=== PATIENT | female | born 1950 | race Caucasian/White ===

== ENCOUNTER → 2017-06-14 | Outpatient (CLI) | payer MEDICARE, OTHER ==
[~2017-06-14] MED LIST: ASPI81TA50 PO; CALC-507 PO; ESTR10TA VG; LOVA20TA2 PO; MULT1TAB6 PO; OMEP10CA PO; VIT1TABL65 PO
--- NOTE | 2017-06-14 11:46 | RAD ---
DATE: 06/14/2017 EXAM: MAMMO VERONIKA SCREENING BILATERAL HISTORY: Routine screening COMPARISON: 05/29/2016 This study was interpreted with the benefit of Computerized Aided Detection (CAD). There are scattered fibroglandular densities in the breasts. Findings: 2-D and 3-D tomosynthesis imaging was performed in CC and MLO projections. No new or enlarging breast densities are seen. Minimal benign type calcifications are present. No suspicious microcalcifications have developed. IMPRESSION: Stable mammograms without evidence of malignancy. BI-RADS CATEGORY: 2 BENIGN FINDING(S) RECOMMENDED FOLLOW-UP: 12M 12 MONTH FOLLOW-UP PQRS compliance statement: Patient information was entered into a reminder system with a target due date for the next mammogram. Mammography is a sensitive method for finding small breast cancers, but it does not detect them all and is not a substitute for careful clinical examination. A negative mammogram does not negate a clinically suspicious finding and should not result in delay in biopsying a clinically suspicious abnormality. "Our facility is accredited by the [employer] Mammography [employer]."
== END | disposition home or self-care (01) ==
LOC: MAMMO 09:44
PROVIDERS: ATTEND Physician Assistant
DX: Z12.31 Encounter for screening mammogram for malignant neoplasm of breast (principal); Z00.00 Encounter for general adult medical examination without abnormal findings
CPT/HCPCS: 77063; G0202; 77067

== ENCOUNTER → 2018-06-17 | Outpatient (CLI) | payer MEDICARE, OTHER ==
--- NOTE | 2018-06-17 10:20 | RAD ---
DATE: 06/17/2018 EXAM: MAMMO VERONIKA SCREENING BILATERAL HISTORY: Routine screening COMPARISON: 06/14/2017 This study was interpreted with the benefit of Computerized Aided Detection (CAD). The breast parenchyma shows scattered fibroglandular densities. Breast parenchyma level B. FINDINGS: 2-D and 3-D tomosynthesis imaging was performed in CC and MLO projections. No new or enlarging breast densities are seen. No suspicious microcalcifications are evident. IMPRESSION: Stable mammograms without evidence of malignancy. BI-RADS CATEGORY: 1 NEGATIVE RECOMMENDED FOLLOW-UP: 12M 12 MONTH FOLLOW-UP PQRS compliance statement: Patient information was entered into a reminder system with a target due date for the next mammogram. Mammography is a sensitive method for finding small breast cancers, but it does not detect them all and is not a substitute for careful clinical examination. A negative mammogram does not negate a clinically suspicious finding and should not result in delay in biopsying a clinically suspicious abnormality. "Our facility is accredited by the [employer] Mammography [employer]."
== END | disposition home or self-care (01) ==
LOC: MAMMO 07:45
PROVIDERS: ATTEND Physician Assistant
DX: Z12.31 Encounter for screening mammogram for malignant neoplasm of breast (principal)
CPT/HCPCS: 77063; 77067

== ENCOUNTER → 2019-07-17 | Outpatient (CLI) | payer MEDICARE, OTHER ==
--- NOTE | 2019-07-18 10:02 | RAD ---
Bone densitometry 07/17/2019 10:28 AM Indication: Screening exam, postmenopausal. Comparison Study: None. Discussion: Bone Densitometry was performed with dual photon absorption of the lumbar spine and proximal right femur. Lumbar Spine: Bone average density is 1.127g/cm2 for L1-L4. T-Score is -0.4. Proximal right femur: Bone average density is 1.060g/cm2. T-Score is 0.8. IMPRESSION: Normal bone mineral density Note: Definitions established by the World Health Organization: Normal: T-score is -1.0 or above. Osteopenia: T-score is between -1.0 and -2.5. Osteoporosis: T-score is -2.5 or below. Electronically signed by: Shubham Multani MD (07/18/2019 9:59 AM) [id number]
--- NOTE | 2019-07-18 18:10 | RAD ---
BILATERAL SCREENING MAMMOGRAM, 3-D History: Routine screening. Comparison: 05/29/2016, 06/14/2017, 06/17/2018 mammographic exams. Technique: MLO and CC digital tomosynthesis (3D) images obtained. Radiologist reviewed these images on dedicated workstation. Findings: Breast Tissue Density B : There are scattered areas of fibroglandular density. There are no dominant masses, suspicious microcalcifications, or architectural distortion. IMPRESSION: No mammographic evidence of malignancy. Recommend routine screening. BI-RADS category 1: Negative. The images were reviewed with computer-aided detection. Patient information is entered into reminder system with a target due date for the next screening mammogram. Mammography is the most sensitive method for finding small breast cancers, but it does not detect them all and is not a substitute for careful clinical examination. A negative mammogram does not negate a clinically suspicious finding and should not result in delay in biopsying a clinically suspicious abnormality. "Our facility is accredited by the [employer] Mammography Program." Electronically signed by: Malcom Le MD (07/18/2019 6:07 PM) [facility]
== END | disposition home or self-care (01) ==
LOC: DXRAD 09:46
PROVIDERS: ATTEND Registered Nurse
DX: Z12.31 Encounter for screening mammogram for malignant neoplasm of breast (principal); Z78.0 Asymptomatic menopausal state
CPT/HCPCS: 77063; 77067; 77080

== ENCOUNTER 2019-10-20 08:15 | Observation (INO) | payer MEDICARE, OTHER ==
[~2019-10-20] VITALS: Ht 160 cm; Wt 61.9 kg
--- NOTE | 2019-10-20 08:42 | PHYS DOC ---
Past History Past Medical History: GERD, High Cholesterol Additional Past Medical Histor: hiatal hernia Past Surgical History: Appendectomy, Cholecystectomy, Other Additional Past Surgical Histo: colon resce; left breast bx; incisional hernia repair Smoking: Non-smoker Alcohol Use: Occasionally Additional Alcohol Information: 1 beer per week Drug Use: None Adult General Chief Complaint Chief Complaint: CHEST PAIN [facility] HPI Patient is a 69-year-old female who presents to the emergency department for evaluation. She states that overnight she awakened with some epigastric discomfort, described as a fullness or pressure, associated with some nausea, and some discomfort in her left trapezius/neck area. The symptoms have been waxing and waning, and not associated with any other symptoms. She has not had any shortness of breath, exertional exacerbation of his symptoms, any direct chest pain, vomiting, or diaphoresis. She has no prior cardiac history, but risk factors include borderline cholesterol which is treated with a cholesterol medication, as well as a family history. The patient has never been a smoker. There are no alleviating or exacerbating factors to the patient's symptoms. HEART score is a 3. Review of Systems Review of Systems Constitutional: Denies fever or chills [] Eyes: Denies change in visual acuity, redness, or eye pain [] HENT: Denies nasal congestion or sore throat [] Respiratory: Denies cough or shortness of breath [] Cardiovascular: No additional information not addressed in HPI [] GI: Denies abdominal pain vomiting, bloody stools or diarrhea [] : Denies dysuria or hematuria [] Musculoskeletal: Denies back pain or joint pain [] Integument: Denies rash or skin lesions [] Neurologic: Denies headache, focal weakness or sensory changes [] Endocrine: Denies polyuria or polydipsia [] All other systems were reviewed and found to be within normal limits, except as documented in this note. Allergies Allergies Allergies Coded Allergies Type Severity Reaction Last Updated Verified ampicillin Allergy Intermediate Rash 10/20/19 Yes levofloxacin Allergy Mild 10/20/19 Yes Physical Exam Physical Exam PHYSICAL EXAM: CONSTITUTIONAL: Well developed, well nourished HEAD: normocephalic, atraumatic EENT: PERRL, EOMI. Conjunctivae normal color, sclerae non-icteric; moist mucous membranes. NECK: Supple, non-tender; no meningismus. LUNGS: Lungs CTA, breathing even and unlabored. Normal air movement. HEART: Regular rate and rhythm, no murmur CHEST: No deformity; non-tender ABDOMEN: The abdomen is soft, and non-tender, no masses or bruits. EXTREM: Normal ROM; no deformity, no calf tenderness. Normal pulses palpable in all extremities. There is no pedal edema. SKIN: No rash; no diaphoresis NEURO: Alert; normal speech and cognition; CN's grossly intact; strength grossly intact without focal deficit. BACK: No CVA TTP. Current Patient Data Vital Signs Vital Signs Date Time Temp Pulse Resp B/P (MAP) Pulse Ox O2 Delivery O2 Flow Rate FiO2 10/20/19 08:23 97.9 104 27 99 Room Air Lab Results Laboratory Tests Test 10/20/19 08:30 White Blood Count 9.2 x10^3/uL Red Blood Count 4.62 x10^6/uL Hemoglobin 14.2 g/dL Hematocrit 42.2 % Mean Corpuscular Volume 91 fL Mean Corpuscular Hemoglobin 31 pg Mean Corpuscular Hemoglobin Concent 34 g/dL Red Cell Distribution Width 13.2 % Platelet Count 233 x10^3/uL Neutrophils (%) (Auto) 68 % Lymphocytes (%) (Auto) 23 % Monocytes (%) (Auto) 6 % Eosinophils (%) (Auto) 3 % Basophils (%) (Auto) 1 % Neutrophils # (Auto) 6.2 x10^3uL Lymphocytes # (Auto) 2.1 x10^3/uL Monocytes # (Auto) 0.6 x10^3/uL Eosinophils # (Auto) 0.2 x10^3/uL Basophils # (Auto) 0.1 x10^3/uL Sodium Level 140 mmol/L Potassium Level 3.3 mmol/L Chloride Level 103 mmol/L Carbon Dioxide Level 26 mmol/L Anion Gap 11 Blood Urea Nitrogen 14 mg/dL Creatinine 0.8 mg/dL Estimated GFR (Cockcroft-Gault) 71.3 BUN/Creatinine Ratio 18 Glucose Level 133 mg/dL Calcium Level 8.8 mg/dL Total Bilirubin 0.8 mg/dL Aspartate Amino Transf (AST/SGOT) 21 U/L Alanine Aminotransferase (ALT/SGPT) 33 U/L Alkaline Phosphatase 66 U/L Troponin I Quantitative < 0.017 ng/mL UV-Xrt-N-Type Natriuretic Peptide 226 pg/mL Total Protein 7.5 g/dL Albumin 3.9 g/dL Albumin/Globulin Ratio 1.1 Lipase 141 U/L Current Medications Medications (Trade) Dose Ordered Sig/Hortnecia Route PRN Reason Start Time Stop Time Status Last Admin Dose Admin Aspirin (Children'S Aspirin) 324 mg 1X ONCE PO 10/20/19 08:45 10/20/19 08:49 DC 10/20/19 09:05 Multi-Ingredient Mouthwash/Gargle (Gi Cocktail) 20 ml 1X ONCE PO 10/20/19 08:45 10/20/19 08:49 DC 10/20/19 09:05 EKG EKG Normal sinus rhythm with a normal rate, normal axis, normal intervals, there are no acute ischemic ST/T changes.[] Repeat EKG, done at 9:31, shows normal sinus rhythm a rate of 97 bpm with occasional PVCs, normal axis, normal intervals, there are no acute ischemic ST/T changes. Radiology/Procedures Radiology/Procedures PROCEDURE: PORTABLE CHEST 1V EXAM: Chest, single view. HISTORY: Chest pain. COMPARISON: None. FINDINGS: A frontal view of the chest is obtained. There is no infiltrate, pleural effusion or pneumothorax. The heart is normal in size. IMPRESSION: No acute pulmonary finding.[] Course & Med Decision Making Course & Med Decision Making Pertinent Labs and Imaging studies reviewed. (See chart for details) []10:15 PM: The patient's condition remains stable. I spoke with the hospitalist, who accepted the patient to the hospital for further evaluation and treatment. Dragon Disclaimer Dragon Disclaimer This electronic medical record was generated, in whole or in part, using a voice recognition dictation system. Departure Departure: Impression: Primary Impression: Atypical chest pain Additional Impression: PVC (premature ventricular contraction) Disposition: ADMITTED INPATIENT Admitting Physician: Patsy Lawrence Condition: STABLE Referrals: NIK KESSLER (PCP) Problem Qualifiers ASHOK MINAYA MD Oct 20, 2019 08:42
[2019-10-20 08:45] LABS: BASO # 0.1 x10^3/uL (0.0-0.2); BASO % 1 % (0-3); EOS # 0.2 x10^3/uL (0.0-0.7); EOS % 3 % (0-3); HEMATOCRIT 42.2 % (36.0-47.0); HEMOGLOBIN 14.2 g/dL (12.0-15.5); LYMPH # 2.1 x10^3/uL (1.0-4.8); LYMPH % 23 % (24-48); MEAN CORPUSCULAR HEMOGLOBIN 31 pg (25-35); MEAN CORPUSCULAR HGB CONC 34 g/dL (31-37); MEAN CORPUSCULAR VOLUME 91 fL (79-100); MONO # 0.6 x10^3/uL (0.0-1.1); MONO % 6 % (0-9); NEUT # 6.2 x10^3uL (1.8-7.7); NEUT % 68 % (31-73); PLATELET COUNT 233 x10^3/uL (140-400); RED BLOOD COUNT 4.62 x10^6/uL (3.50-5.40); RED CELL DISTRIBUTION WIDTH 13.2 % (11.5-14.5); WHITE BLOOD COUNT 9.2 x10^3/uL (4.0-11.0)
[2019-10-20] MEDS ORDERED: LIDO:MAALOX 1:1 20 ML SINGLE DOSE. PO ONE (08:45)
[2019-10-20] MEDS ORDERED: ASPIRIN 81 MG TAB.CHEW PO ONE (08:45)
[2019-10-20 09:03] LABS: ALBUMIN 3.9 g/dL (3.4-5.0); ALBUMIN/GLOBULIN RATIO 1.1 (1.0-1.7); CALCIUM 8.8 mg/dL (8.5-10.1); CREATININE 0.8 mg/dL (0.6-1.0); GFR 71.3; POTASSIUM 3.3 mmol/L (3.5-5.1); TOTAL BILIRUBIN 0.8 mg/dL (0.2-1.0); TOTAL PROTEIN 7.5 g/dL (6.4-8.2)
--- NOTE | 2019-10-20 09:12 | RAD ---
EXAM: Chest, single view. HISTORY: Chest pain. COMPARISON: None. FINDINGS: A frontal view of the chest is obtained. There is no infiltrate, pleural effusion or pneumothorax. The heart is normal in size. IMPRESSION: No acute pulmonary finding. Electronically signed by: Sally Torres MD (10/20/2019 9:08 AM) [place] [id number]
--- NOTE | 2019-10-20 09:35 | EKG ---
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
[2019-10-20] MEDS ORDERED: METOPROLOL TARTRATE 5 MG/5 ML VIAL. IV ONE (10:15)
[2019-10-20 11:13] VITALS: BP 135/83
--- NOTE | 2019-10-20 13:24 | HP ---
ADMIT DATE: 10/20/2019 HISTORY OF PRESENT ILLNESS: The patient is a 69-year-old female patient who came to the Emergency Room complaining of epigastric discomfort that awakened her from sleep overnight, described as a fullness or pressure associated with some nausea and some discomfort in her left shoulder area and left neck. Symptoms have been waxing and waning, are not associated with any other symptom, particularly denied any shortness of breath. Denied any diaphoresis. The pain has happened when she was sitting and not exerting herself. She normally walks on a treadmill five times a week. She has some nausea, but no vomiting. She has no prior cardiac history. She has had stress test done in 2000 when her brother had heart attack and at that time, it was normal. She has never had cardiac catheterization. She was evaluated in the Emergency Room and has had an EKG, which showed that she was in sinus rhythm, normal rate, axis and intervals. There is no acute ischemia or ST-T changes. She does have occasional premature ventricular contractions. Her chest x-ray was unremarkable, showed no acute pulmonary finding and her first set of cardiac enzymes showed a troponin to be less than 0.017 and therefore, the patient was admitted to do 2 more sets of cardiac enzyme, check her fasting lipid profile and consult the Cardiology team. PAST MEDICAL HISTORY: Significant for hyperlipidemia, gastroesophageal reflux disease, hiatal hernia. She has also history before of Helicobacter pylori gastritis, treated for that. PAST SURGICAL HISTORY: Significant for cholecystectomy, colon resection, incisional hernia repair, breast biopsy, esophagogastroduodenoscopy and colonoscopy. ALLERGIES: She is allergic to AMPICILLIN and LEVOFLOXACIN. MEDICATIONS: She is currently on following medications: She is on lovastatin 20 mg once a day at bedtime, calcium carbonate with vitamin D3 one tablet once a day, omeprazole 10 mg once a day, estradiol, Vagifem 10 mcg once a week and multivitamin with mineral 1 tablet once a day. FAMILY HISTORY: She has 3 brothers, all younger. The oldest brother has had triple bypass and 3 stents. Second was diagnosed with endocarditis and congestive heart failure at the age of 59. The third was diagnosed with pulmonary embolism and has hypertension and heart disease. Her father at age of 30 because of lymphoma. Mother is still alive at the age of 90 and had two TIAs and a stroke. SOCIAL HISTORY: She is , has a son and daughter. She never smoked. Drinks alcohol occasionally. 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 REVIEW OF SYSTEMS: The patient denied any blurring of vision, cataract, glaucoma or macular degeneration. Denied any earache, tinnitus or sensorineural deafness. Denied any nosebleeds, stuffy nose or postnasal drip. Denied any sore throat, sore tongue, toothache, hoarseness of voice or difficulty swallowing. Did complain of nausea, but no vomiting. Denied any diarrhea or constipation. Denied any hematemesis, melena or hematochezia. Denied any dysuria, frequency or hematuria. Did complain of epigastric discomfort with radiation to left shoulder and left side of the neck. Denied any shortness of breath, orthopnea, paroxysmal nocturnal dyspnea. Denied any cough, phlegm or hemoptysis. Denied any chills, rigors or fever. PHYSICAL EXAMINATION: GENERAL: On arrival to the Emergency Room, she looked well and was clearly in no apparent respiratory distress. There is no pallor, jaundice, cyanosis or thyromegaly. No jugular venous distention. No limb edema. VITAL SIGNS: Her heart rate was 91, blood pressure was 127/98, temperature was 97.9, respiratory rate was 20, and oxygen saturation was 98%. HEAD, EYES, EARS, NOSE AND THROAT: Showed normocephalic, atraumatic. NECK: Supple. HEART: Showed normal first and second heart sounds. No gallop or murmur. CHEST: Clear to auscultation. No crepitation or rhonchi. ABDOMEN: Distended, soft, nontender. NEUROLOGIC: She is awake, alert, responding appropriately. All cranial nerves intact. EXTREMITIES: She moves extremities without difficulty. She ambulates without assistance or assistive devices. LABORATORY DATA: Showed that her serum sodium was 140, potassium 3.3, chloride 103, bicarbonate 26, anion gap of 11, BUN 14, creatinine 0.8, estimated GFR was 71 mL per minute. Her glucose 133, calcium was 8.8. Total bilirubin, AST, ALT, alkaline phosphatase were normal. Total protein was 7.5, albumin was 3.9. Her white cell count was 9200, hemoglobin 14, hematocrit 42, MCV 91 and platelet count 233,000 with normal manual differential. Her chest x-ray showed that there is no infiltrate, pleural effusion or pneumothorax. Heart size is normal. PLAN: Plan is to do 2 more sets of cardiac enzymes, check her fasting lipid profile, consult the Cardiology team. Meanwhile, we will continue with all her medications. ATIYA WORRELL MD DR: LORI/shruthi JOB#: [id number] / [id number]
[2019-10-20] MEDS ORDERED: ASPI-630 PO (14:23)
[2019-10-20] MEDS: POTASSIUM CHLORIDE 20 MEQ TABLET.ER. PO SCH ×2 (14:35→21:24)
[2019-10-20 15:00] VITALS: BP 114/74
--- NOTE | 2019-10-20 16:05 | PDOC2 ---
CONSULT Date of Admission DATE: 10/20/19 TIME: 16:05 Reason for Consult: CP Referring Physician: Dr. Lawrence Chief Complaint Epigastric discomfort Source: Chart review, Patient Problem List Problems Medical Problems: (1) Atypical chest pain Status: Acute (2) PVC (premature ventricular contraction) Status: Acute History of Present Illness 69 y/o female without any previous cardiac history presented complaining of epigastric discomfort, waxing and waning, associated with nausea and left shoul celio and neck pain, 7/10 severity when worse. Symptoms not related to exertion. She denied orthopnea/PND, palpitations or syncope. She has significant FH premature CAD Past Medical History GERD HLP Past Surgical History Appendectomy, Cholecystectomy, colon resce; left breast bx; incisional hernia repair Family History Strongly positive for premature CAD Social History Patient is non smoker, admitted to occasional alcohol intake and denied any drug use Current Medications Current Medications Aspirin (Children'S Aspirin) 324 mg 1X ONCE PO Last administered on 10/20/19at 09:05; Start 10/20/19 at 08:45; Stop 10/20/19 at 08:49; Status DC Multi-Ingredient Mouthwash/Gargle (Gi Cocktail) 20 ml 1X ONCE PO Last administered on 10/20/19at 09:05; Start 10/20/19 at 08:45; Stop 10/20/19 at 08:49; Status DC Metoprolol Tartrate (Lopressor Vial) 5 mg 1X ONCE IV Last administered on 10/20/19at 10:15; Start 10/20/19 at 10:15; Stop 10/20/19 at 10:16; Status DC Potassium Chloride (Klor-Con) 20 meq TID PO Last administered on 10/20/19at 14:35; Start 10/20/19 at 14:00 Active Scripts Active Reported Aspirin 81 Mg Tab.chew 81 Mg PO DAILY Prilosec (Omeprazole) 10 Mg Capsule.dr 10 Mg PO Centrum Complete Multivit Tab (Multivitamin/Iron/Folic Acid) 1 Each Tablet 1 Each PO Calcium 600 + D Tablet (Calcium Carbonate/Vitamin D3) 1 Each Tablet 1 Each PO DAILY Vagifem (Estradiol) 10 Mcg Tablet 10 Mcg VG Lovastatin 20 Mg Tablet 1 Tab PO DAILY Allergies: Coded Allergies: ampicillin (Verified Allergy, Intermediate, Rash, 10/20/19) levofloxacin (Verified Allergy, Mild, 10/20/19) General: No: Fatigue PSYCHOLOGICAL ROS: No: Hallucinations Eyes: No: Loss of vision HEENT: No: Epistaxis Respiratory: No: Hemoptysis Cardiovascular: yes: Chest Pain Gastrointestinal: YES: Nausea; No: Vomiting Genitourinary: No: Henaturia Neurological: No: Seizures Skin: No: Rash General: Alert, Oriented X3 HEENT: Atraumatic, PERRLA Lungs: Clear to auscultation Heart: Regular rate Abdomen: Soft, No tenderness Extremities: No edema Psych/Mental Status: Mood NL VITALS Vital Signs Date Time Temp Pulse Resp B/P (MAP) Pulse Ox O2 Delivery O2 Flow Rate FiO2 10/20/19 15:00 97.9 62 20 114/74 (87) 94 Room Air Labs Laboratory Tests Test 10/20/19 08:30 10/20/19 13:20 White Blood Count 9.2 x10^3/uL (4.0-11.0) Red Blood Count 4.62 x10^6/uL (3.50-5.40) Hemoglobin 14.2 g/dL (12.0-15.5) Hematocrit 42.2 % (36.0-47.0) Mean Corpuscular Volume 91 fL (79-100) Mean Corpuscular Hemoglobin 31 pg (25-35) Mean Corpuscular Hemoglobin Concent 34 g/dL (31-37) Red Cell Distribution Width 13.2 % (11.5-14.5) Platelet Count 233 x10^3/uL (140-400) Neutrophils (%) (Auto) 68 % (31-73) Lymphocytes (%) (Auto) 23 % (24-48) Monocytes (%) (Auto) 6 % (0-9) Eosinophils (%) (Auto) 3 % (0-3) Basophils (%) (Auto) 1 % (0-3) Neutrophils # (Auto) 6.2 x10^3uL (1.8-7.7) Lymphocytes # (Auto) 2.1 x10^3/uL (1.0-4.8) Monocytes # (Auto) 0.6 x10^3/uL (0.0-1.1) Eosinophils # (Auto) 0.2 x10^3/uL (0.0-0.7) Basophils # (Auto) 0.1 x10^3/uL (0.0-0.2) Sodium Level 140 mmol/L (136-145) Potassium Level 3.3 mmol/L (3.5-5.1) Chloride Level 103 mmol/L (98-107) Carbon Dioxide Level 26 mmol/L (21-32) Anion Gap 11 (6-14) Blood Urea Nitrogen 14 mg/dL (7-20) Creatinine 0.8 mg/dL (0.6-1.0) Estimated GFR (Cockcroft-Gault) 71.3 BUN/Creatinine Ratio 18 (6-20) Glucose Level 133 mg/dL (70-99) Calcium Level 8.8 mg/dL (8.5-10.1) Total Bilirubin 0.8 mg/dL (0.2-1.0) Aspartate Amino Transf (AST/SGOT) 21 U/L (15-37) Alanine Aminotransferase (ALT/SGPT) 33 U/L (14-59) Alkaline Phosphatase 66 U/L (46-116) Troponin I Quantitative < 0.017 ng/mL (0-0.055) < 0.017 ng/mL (0-0.055) KI-Wew-H-Type Natriuretic Peptide 226 pg/mL (0-124) Total Protein 7.5 g/dL (6.4-8.2) Albumin 3.9 g/dL (3.4-5.0) Albumin/Globulin Ratio 1.1 (1.0-1.7) Lipase 141 U/L (73-393) Assessment/Plan 1. Epigastric discomfort: appears to be GI in etiology. OK ruled out. Check 2D echo to assess LVF and rule out wall motion abnormalities. Plan ischemic evaluation as outpatient due to FH CAD 2. HLP: statins Thank you for your consultation ROSHAN ROQUE MD Oct 20, 2019 16:05
[2019-10-20] MEDS ORDERED: CONTRAST GIVEN MC PRN (16:30)
[2019-10-20] MEDS ORDERED: IOHEXOL 240 MG/ML 50ML VIAL. PO ONE (16:30)
[2019-10-20] MEDS ORDERED: IOHEXOL 300 MG/ML 75 ML VIAL. IV ONE (16:30)
--- NOTE | 2019-10-20 18:18 | RAD ---
Exam: CT abdomen and pelvis with contrast INDICATION: Nausea, vomiting and abdominal pain TECHNIQUE: Sequential axial images through the abdomen and pelvis obtained following the administration of 75 mL of Omni 300 IV contrast. Sagittal and coronal reformatted images were reconstructed from the axial data and reviewed. Comparisons: None FINDINGS: Heart size is normal. No pericardial effusion. Strandy opacities at the dependent portion the lungs. No pleural effusion. Liver, spleen, pancreas, and adrenals are unremarkable. Gallbladder surgically absent. Kidneys demonstrate symmetric enhancement. No perinephric inflammation or hydronephrosis. No renal or ureteral calculi are identified. Bladder is distended and appears thin-walled. Uterus not enlarged. No abnormal adnexal mass. Large and small bowel are unremarkable. No obstruction. No free intra-abdominal air or fluid. Abdominal aorta has a normal course and caliber. Abdominal vasculature is patent. No enlarged intra-abdominal lymph nodes are identified. No suspicious osseous lesions or acute fractures. IMPRESSION: 1. Diverticulosis of the sigmoid colon without evidence of acute diverticulitis. 2. No acute process identified within the abdomen or pelvis. Exposure: One or more of the following in the visualized dose reduction techniques were utilized for this examination: 1. Automated exposure control 2. Adjustment of the MA and/or KV according to patient size 3. Use of iterative of reconstructive technique Electronically signed by: Pam Young MD (10/20/2019 6:15 PM) [facility]
[2019-10-20 19:24] VITALS: BP 109/72
[2019-10-20] MEDS ORDERED: ATORVASTATIN CALCIUM 10 MG TABLET. PO SCH (21:00)
[2019-10-20] MEDS ORDERED: ASPIRIN 81 MG TAB.CHEW PO SCH (21:00)
[2019-10-20 22:54] VITALS: BP 102/69
[2019-10-21 05:20] VITALS: BP 101/69
--- NOTE | 2019-10-21 06:09 | EKG ---
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
[2019-10-21 06:25] LABS: CALCIUM 8.8 mg/dL (8.5-10.1); CREATININE 0.6 mg/dL (0.6-1.0); GFR 99.4
[2019-10-21] MEDS ORDERED: PANTOPRAZOLE 40 MG TABLET. PO SCH (07:30)
--- NOTE | 2019-10-21 07:47 | PDOC ---
CARDIO Progress Notes Date & Time Date of Service DATE: 10/21/19 TIME: 07:44 Time of Evaluation 07:44 Subjective Notes No chest pain, palpitations, dizziness, diaphoresis, or nausea/vomiting. Feeling much better today. Vitals Vitals Vital Signs Date Time Temp Pulse Resp B/P (MAP) Pulse Ox O2 Delivery O2 Flow Rate FiO2 10/21/19 05:20 98.2 89 18 101/69 (80) 95 Room Air Weight Weight [ ] Input and Output I.O. Intake and Output 10/21/19 07:00 Intake Total 720 ml Balance 720 ml Intake Oral 720 ml # Voids 4 Laboratory Labs Laboratory Tests Test 10/20/19 08:30 10/20/19 13:20 10/20/19 18:15 10/21/19 05:55 White Blood Count 9.2 x10^3/uL (4.0-11.0) Red Blood Count 4.62 x10^6/uL (3.50-5.40) Hemoglobin 14.2 g/dL (12.0-15.5) Hematocrit 42.2 % (36.0-47.0) Mean Corpuscular Volume 91 fL (79-100) Mean Corpuscular Hemoglobin 31 pg (25-35) Mean Corpuscular Hemoglobin Concent 34 g/dL (31-37) Red Cell Distribution Width 13.2 % (11.5-14.5) Platelet Count 233 x10^3/uL (140-400) Neutrophils (%) (Auto) 68 % (31-73) Lymphocytes (%) (Auto) 23 % (24-48) Monocytes (%) (Auto) 6 % (0-9) Eosinophils (%) (Auto) 3 % (0-3) Basophils (%) (Auto) 1 % (0-3) Neutrophils # (Auto) 6.2 x10^3uL (1.8-7.7) Lymphocytes # (Auto) 2.1 x10^3/uL (1.0-4.8) Monocytes # (Auto) 0.6 x10^3/uL (0.0-1.1) Eosinophils # (Auto) 0.2 x10^3/uL (0.0-0.7) Basophils # (Auto) 0.1 x10^3/uL (0.0-0.2) Sodium Level 140 mmol/L (136-145) 143 mmol/L (136-145) Potassium Level 3.3 mmol/L (3.5-5.1) 4.0 mmol/L (3.5-5.1) Chloride Level 103 mmol/L (98-107) 105 mmol/L (98-107) Carbon Dioxide Level 26 mmol/L (21-32) 29 mmol/L (21-32) Anion Gap 11 (6-14) 9 (6-14) Blood Urea Nitrogen 14 mg/dL (7-20) 7 mg/dL (7-20) Creatinine 0.8 mg/dL (0.6-1.0) 0.6 mg/dL (0.6-1.0) Estimated GFR (Cockcroft-Gault) 71.3 99.4 BUN/Creatinine Ratio 18 (6-20) Glucose Level 133 mg/dL (70-99) 100 mg/dL (70-99) Calcium Level 8.8 mg/dL (8.5-10.1) 8.8 mg/dL (8.5-10.1) Total Bilirubin 0.8 mg/dL (0.2-1.0) Aspartate Amino Transf (AST/SGOT) 21 U/L (15-37) Alanine Aminotransferase (ALT/SGPT) 33 U/L (14-59) Alkaline Phosphatase 66 U/L (46-116) Troponin I Quantitative < 0.017 ng/mL (0-0.055) < 0.017 ng/mL (0-0.055) < 0.017 ng/mL (0-0.055) IC-Voe-X-Type Natriuretic Peptide 226 pg/mL (0-124) Total Protein 7.5 g/dL (6.4-8.2) Albumin 3.9 g/dL (3.4-5.0) Albumin/Globulin Ratio 1.1 (1.0-1.7) Lipase 141 U/L (73-393) Physical Exams HEENT: Neck Supple W Full Motion Chest: Symmetric Lungs: Clear to Auscultation Heart: S1S2, RRR Abdomen: Soft N/T Extremities: No Edema Neurology: alert, oriented, follow commands Assessment Assessment 1. Chest, epigastric pain. Most probably GI in nature. AMI ruled out. 2. Hyperlipidemia; statin Recommendations PPI Lipids, TSH Echo today to assess LV systolic function If WNL, may discharge from a CV standpoint and f/u in our office with Dr. Veal in 4-6 weeks Will schedule outpatient MPI to rule out ischemia given risk factors. MIKIE GERMAIN APRN Oct 21, 2019 07:47
[2019-10-21] MEDS: POTASSIUM CHLORIDE 20 MEQ TABLET.ER. PO SCH ×2 (07:56→14:01)
[2019-10-21] MEDS ORDERED: MULTIVITAMIN with MINERAL TABLET. PO SCH (09:00)
[2019-10-21] MEDS ORDERED: CALCIUM CARB/VIT D3 500/200 TABLET PO SCH (09:00)
[2019-10-21 10:32] VITALS: BP 108/77
[2019-10-21 15:35] VITALS: BP 100/73
--- NOTE | 2019-10-21 16:54 | CARD ---
MR#: [id number] Date of Study: 10/21/2019 Ordering Physician: ROSHAN VELA, Referring Physician: ROSHAN VELA, Tech: Sherry Contreras APPROVED REPORT EXAM: Two-dimensional and M-mode echocardiogram with Doppler and color Doppler. Other Information Quality : GoodHR: 62bpm INDICATION Chest Pain RISK FACTORS Hyperlipidemia 2D DIMENSIONS RVDd3.1 (2.9-3.5cm)Left Atrium(2D)2.7 (1.6-4.0cm) IVSd1.1 (0.7-1.1cm)Aortic Root(2D)3.0 (2.0-3.7cm) LVDd3.6 (3.9-5.9cm)LVOT Diameter2.0 (1.8-2.4cm) PWd1.0 (0.7-1.1cm)LVDs2.6 (2.5-4.0cm) FS (%) 28.1 %SV30.9 ml LVEF(%)55.3 (>50%) Aortic Valve AoV Peak Jamie.122.9cm/sAoV VTI29.1cm AO Peak GR.6.0mmHgLVOT Peak Jamie.87.8cm/s LVOT VTI 20.87cmAO Mean GR.3mmHg LAM (VMAX)2.15ot6DTZ (VTI)2.29cm2 Mitral Valve MV E Dzrkybgw37.8cm/sMV DECEL UCSN198ky MV A Lalrttpn36.8cm/sE/A Ratio0.7 Pulmonary Valve PV Peak Twuzucop14.4cm/sPV Peak Grad.2mmHg Tricuspid Valve TR P. Coqzynhs136xd/sRAP UQWWCNEL3ocCu TR Peak Gr.07btFyBJWG08enNu Pulmonary Vein S1 Iufzjsaa97.8cm/sD2 Hlolxwrv84.6cm/s LEFT VENTRICLE The left ventricle is normal size. There is borderline concentric left ventricular hypertrophy. The l eft ventricular systolic function is normal. The Ejection Fraction is 55-60%. There is normal LV segm ental wall motion. Transmitral Doppler flow pattern is Grade I-abnormal relaxation pattern. RIGHT VENTRICLE The right ventricle is normal size. There is normal right ventricular wall thickness. The right ventr icular systolic function is normal. ATRIA The left atrium size is normal. The right atrium size is normal. The interatrial septum is intact wit h no evidence for an atrial septal defect or patent foramen ovale as noted on 2-D or Doppler imaging. AORTIC VALVE The aortic valve is normal in structure and function. Doppler and Color Flow revealed trace aortic re gurgitation. There is no significant aortic valvular stenosis. MITRAL VALVE The mitral valve is normal in structure and function. There is no evidence of mitral valve prolapse. There is no mitral valve stenosis. Doppler and Color-flow revealed trace mitral regurgitation. TRICUSPID VALVE The tricuspid valve is normal in structure and function. Doppler and Color Flow revealed trace tricus pid regurgitation with an estimated PAP of 27 mmHg. There is no tricuspid valve stenosis. PULMONIC VALVE The pulmonic valve is not well visualized. Doppler and Color Flow revealed no pulmonic valvular regur gitation. GREAT VESSELS The aortic root is normal in size. The IVC is normal in size and collapses >50% with inspiration. PERICARDIAL EFFUSION There is no evidence of significant pericardial effusion. Critical Notification Critical Value: No <Conclusion> The left ventricular systolic function is normal. The Ejection Fraction is 55-60%. There is normal LV segmental wall motion. Transmitral Doppler flow pattern is Grade I-abnormal relaxation pattern. Trace mitral regurgitation. Trace tricuspid regurgitation with an estimated PAP of 27 mmHg. There is no evidence of significant pericardial effusion. Signed by : Roshan Vela, Electronically Approved : 10/21/2019 16:54:07
== END 2019-10-21 17:48 | disposition home or self-care (01) ==
LOC: ER 08:15 → 1 SOUTH 10:10 → ER 10:58
PROVIDERS: ADMIT Internal Medicine; ATTEND Internal Medicine
DX: R07.89 Other chest pain (principal); I49.3 Ventricular premature depolarization; K21.9 Gastro-esophageal reflux disease without esophagitis; E78.00 Pure hypercholesterolemia, unspecified; Z90.49 Acquired absence of other specified parts of digestive tract
CPT/HCPCS: 36415; 71045; 74177; 80048; 80053; 80061; 83690; 83880; 84443; 84484; 85025; 93005; 93306; 96374; 99284; G0378; G0379; J3490; Q9966; Q9967

== ENCOUNTER → 2019-11-04 | Outpatient (CLI) | payer MEDICARE, OTHER ==
[2019-10-21 15:35] VITALS: BP 100/73
[~2019-11-04] MED LIST changes: +ASPI-630 PO; +REGADENOSON 0.4 MG/5 ML DISP.SYRIN. IV ONE
--- NOTE | 2019-11-04 11:12 | RAD ---
MR#: [id number] Date of Study: 11/04/2019 Ordering Physician: ROSHAN ROQUE Referring Physician: MISBAH BENAVIDEZ Tech: RT Vasquez (R) (N) APPROVED REPORT Test Type: Pharmacological Stress Nurse/Tech: Nicole Win Test Indications: NSTEMI Cardiac History: None Medications: See EHR Resting Heart Rate: 59 bpm Resting Blood Pressure: 124/67mmHg Pretest Chest Pain: No chest pain Pharm. Details Pharmacologic stress testing was performed using 0.4mg per 5ml of regadenoson given intravenously ove r 7-10 seconds. POST EXERCISE Reason for Termination: Infusion complete Max HR: 107 bpm Max Blood Pressure: 117/60mmHg Blood Pressure response to exercise: Normal blood pressure response during stress. Heart Rate response to exercise: Increased Chest Pain: No. Arrhythmia: No. ST Change: No. INTERPRETATION Stress EKG Conclusion: No evidence of stress induced EKG changes Imaging Protocol IMAGE PROTOCOL: Rest Tc-99m/stress Tc-99m 1 day Rest: Stress: Viability: Radiopharm.Tc99m MspxbzapxHi86o Sestamibi Fklo77gEp 32mCi Duration 15min. 15min. Img Date 11/04/2019 11/04/2019 Inj-Img Ykbn24pct. 60min. Rest Admin Site:IV - Left AntecubitalAdministrator: RT Vasquez (R)(N) Stress Admin Site: IV - Left AntecubitalAdministrator: RT Vasquez (R)(N) STRESS DATA End Diast. Vol.60.0mlAv. Heart Rate66.0bpm End Syst. Vol.7.0mlCO Index BSA0.0L/min Myocardial Jfsh520.0gEject. Jvknvssn87.0% Stress Rates Pk. Fill Rate2.70EDV/secLVtime Pk. Fill 119.87msec Pk. Empty Rate3.57ESV/secLVtime Pk. Sslzt295.74msec /3 Pk. Fill1.71EDV/sec Stress Scores Regional WT0.00Summed WT0.00 Regional WM0.00Summed WM0.00 The rest and stress images show normal perfusion, normal contraction and thickening. LV Perf. Quant 17 Seg. SSS0.00 17 Seg. SRS0.00 17 Seg. SDS0.00 Stress Defect Extent (% LAD)0.00Rest Defect Extent (% LAD)0.00Rev. Defect Extent (% LAD)0.00 Stress Defect Extent (% LCX) 0.00Rest Defect Extent (% LCX)0.00Rev. Defect Extent (% LCX)0.00 Stress Defect Extent (% RCA)0.00Rest Defect Extent (% RCA)0.00Rev. Defect Extent (% RCA)0.00 Stress Defect Extent (% FRANCISCO)0.00Rest Defect Extent (% FRANCISCO)0.00Rev. Defect Extent (% FRANCISCO)0.00 Other Information Quality:Good Risk Assessment: Low Risk Conclusion 1. No evidence of EKG changes with stress testing. 2. Normal perfusion at stress/rest. 3. Low risk study. 4. EF > 60%. Signed by : Yaakov Mann, Electronically Approved : 11/04/2019 11:12:03
== END | disposition home or self-care (01) ==
LOC: NM 07:29
PROVIDERS: ATTEND Internal Medicine Cardiovascular Disease
DX: I21.4 Non-ST elevation (NSTEMI) myocardial infarction (principal); Z79.01 Long term (current) use of anticoagulants
CPT/HCPCS: 78452; 93017; A9500; J2785

== ENCOUNTER → 2020-09-21 | Outpatient (CLI) | payer MEDICARE, OTHER ==
[~2020-09-21] MED LIST changes: -REGADENOSON 0.4 MG/5 ML DISP.SYRIN. IV ONE
--- NOTE | 2020-09-21 10:23 | RAD ---
EXAM: Bilateral digital screening mammogram with tomosynthesis. HISTORY: 70-year-old female presents for screening mammography. TECHNIQUE: Full-field digital craniocaudal and mediolateral oblique 2D and 3D tomosynthesis images of both breasts are obtained for evaluation. Computer aided detection was applied. COMPARISON: 07/17/2019 BREAST PARENCHYMAL DENSITY: Level B - Scattered fibroglandular densities. FINDINGS: There is no new suspicious mass, microcalcification or region of architectural distortion. IMPRESSION: BI-RADS Category 2: Benign finding(s). RECOMMENDATION: Annual mammography is recommended. If your mammogram demonstrates that you have dense breast tissue, which could hide abnormalities, and if you have other risk factors for breast cancer that have been identified, you might benefit from supplemental screening tests that may be suggested by your ordering physician. Dense breast tissue, in and of itself, is a relatively common condition. This information is not provided to cause undue concern, but rather to raise your awareness and to promote discussion with your physician regarding the presence of other risk factors, in addition to dense breast tissue. A report of your mammography results will be sent to you and your physician. You should contact your physician if you have any questions or concerns regarding this report. Mammography is a sensitive method for finding small breast cancers, but it does not detect them all and is not a substitute for careful clinical examination. A negative mammogram does not negate a clinically suspicious finding and should not result in delay in biopsying a clinically suspicious abnormality. PQRS compliance statement - Patient information was entered into a reminder system with a target due date for the next mammogram. "Our facility is accredited by the [employer] Mamm[employer]." Electronically signed by: Sally Torres MD (09/21/2020 10:20 AM) [id number]
== END ==
LOC: MAMMO 08:53
PROVIDERS: ATTEND Physician Assistant
DX: Z12.31 Encounter for screening mammogram for malignant neoplasm of breast (principal)
CPT/HCPCS: 77063; 77067

== ENCOUNTER → 2021-09-30 | Outpatient (CLI) | payer MEDICARE, OTHER ==
--- NOTE | 2021-09-30 12:30 | RAD ---
History: Routine digital3-D screening mammography PROCEDURE: [Routine 2-D and 3-D CC and MLO views of both breasts are obtained.] The images were als o evaluated with computer-aided detection and the CAD results were analyzed. Previous: Bilateral mammogram from 09/21/2020 and priors. FINDINGS: There are scattered fibroglandular densities (density level B).There is asymmetric density in the upp er left breast, mid depth, not clearly seen on the CC projection, however indicated slightly medial t o the nipple plane on 3 imaging. There are no suspicious masses, suspicious microcalcifications or ar eas of architectural distortion. IMPRESSION: Indeterminate asymmetric density in the upper left breast, mid depth for which a full fie ld 90 degree mediolateral view, spot compression MLO 3-D view and left breast ultrasound may be obtai to. BI-RADS Category 0: Incomplete: Need additional imaging evaluation. "Our facility is accredited by the [employer] Mammography [employer]." A mammogram do es not have 100% sensitivity and therefore a negative imaging study should not delay further work up of a suspicious abnormality. "Our facility is accredited by the [employer] Mammography [employer]." Electronically signed by: Genevieve Byrne MD (09/30/2021 12:27 PM) [id number]
== END ==
LOC: MAMMO 08:37
PROVIDERS: ATTEND Physician Assistant
DX: Z12.31 Encounter for screening mammogram for malignant neoplasm of breast (principal)
CPT/HCPCS: 77063; 77067

== ENCOUNTER → 2021-10-24 | Outpatient (CLI) | payer MEDICARE, OTHER ==
--- NOTE | 2021-10-24 16:40 | RAD ---
EXAMINATION: US BREAST LT, MG DIAGNOSTICUNILAT MAMMO History: 71-year-old woman recalled from screening mammogram for left breast asymmetry Comparison: Screening mammogram 09/30/2021 and other prior exams. Technique: Spot compression MLO and full-field ML views were obtained. CAD was utilized. 3-D tomosyn thesis images were acquired. Subsequent left breast ultrasound performed. Findings: Breast Tissue Density B : There are scattered areas of fibroglandular density. The asymmetry in the upper left breast persist on spot compression but is not definitely seen on the ML view. Ultrasound of the upper left breast was performed from 9:00 to 12:00. At 10:00 3.5 cm from the nipple , there is a 4 x 2 x 2 mm hypoechoic ovoid circumscribed mass, parallel in orientation. No posterior acoustic shadowing. No abnormal lymph nodes in the left axilla. IMPRESSION: Probably benign cyst or area of fibrocystic change in the left breast at 10:00 3.5 cm from the nipple on ultrasound. This possibly but not definitively corresponds with the mammographic abnormality. Recommend 6 month follow-up left breast mammogram and ultrasound to ensure stability. BI-RADS category 3: Probably benign. Electronically signed by: Caryl Jose MD (10/24/2021 4:37 PM) [id number]
== END ==
LOC: MAMMO 12:54
PROVIDERS: ATTEND Physician Assistant
DX: N63.22 Unspecified lump in the left breast, upper inner quadrant (principal); R92.2 Inconclusive mammogram
CPT/HCPCS: 76641; 77065